=== PATIENT | female | born 1990 | race Caucasian/White ===

== ENCOUNTER 2019-12-06 00:42 | Day surgery (SDC) | payer OTHER ==
[2019-12-06 01:03] VITALS: BP 130/75; TEMP 98.8; BMI 31.5
[2019-12-06] MEDS ORDERED: hydrALAZINE 20 MG/ML VIAL SLOW IVP PRN (01:19)
--- NOTE | 2019-12-06 01:21 | PDOC.LDHP ---
Labor and Delivery H&P HPI: Pt of Dr Newman 29 yo G1 with irregular CTX. States was 3 cm on Sunday in office. No VB, no LOF , good FM. Review of Systems: Negative as per HPI after complete review Current gestational age (weeks): 38 (4 days) Due date: 12/16/19 Dating criteria: last menstrual period Grav: 1 Current complications: none Past Medical History: Anxiety Past HX Clavicular FX Current medications: pre-carlos vitamins, other (Zoloft) Allergies/Adverse Reactions: Allergies Allergy/AdvReac Type Severity Reaction Status Date / Time No Known Allergies Allergy Unverified 12/06/19 00:55 Social history: none - Physical Exam Vital signs reviewed and normal: yes (134/71 afebrile) General: NAD Heart: RRR Lungs: CTAB Abdomen: gravid Extremeties: no edema FHT: category 1 [place] contractions every: every 2-6 - Vaginal Exam cm dilated: 3 Effacement: 90% Station: -1 - Assessment Latent labor at early term, 3cm. Patient lives about 1 hr away - Plan Plan: observation in L&D (Obs here until 0600 due to her distance from hospital. Recheck at 0600. Pain meds prn. If no change may be DC home then.)
[2019-12-06] MEDS ORDERED: Morphine 2 MG/ML SYRINGE IM PRN (01:23)
== END 2019-12-06 06:30 | disposition home or self-care (01) ==
LOC: L&D/OP 00:42
PROVIDERS: ATTEND Obstetrics & Gynecology
DX: O47.1 False labor at or after 37 completed weeks of gestation (principal); O99.343 Other mental disorders complicating pregnancy, third trimester; F41.9 Anxiety disorder, unspecified; Z3A.38 38 weeks gestation of pregnancy; Z79.899 Other long term (current) drug therapy

== ENCOUNTER 2019-12-07 08:02 | Inpatient (IN) | payer OTHER ==
[2019-12-07 08:22] VITALS: BMI 31.5
[2019-12-07] MEDS ORDERED: Lidocaine 1% (PF) 30 ML VIAL SC PRN (08:41)
[2019-12-07] MEDS ORDERED: Promethazine HCl 25 MG/ML VIAL IM PRN ×2 (08:41→11:46)
[2019-12-07] MEDS ORDERED: Acetaminophen 500 MG TAB PO PRN (08:41)
[2019-12-07] MEDS ORDERED: hydrALAZINE 20 MG/ML VIAL SLOW IVP PRN ×2 (08:41→17:49)
[2019-12-07] MEDS ORDERED: Butorphanol Tartrate 1 MG/ML VIAL SLOW IVP PRN (08:41)
[2019-12-07] MEDS ORDERED: NS / Oxytocin 40 units/1000ml 1,000 ML IV PRN (08:41)
[2019-12-07] MEDS ORDERED: Ondansetron PF 4 MG/2 ML Vial IVP PRN ×3 (08:41→17:49)
[2019-12-07] MEDS ORDERED: NS w/ Oxytocin 10 units 500 ML IV SCH (08:45)
--- NOTE | 2019-12-07 08:50 | PDOC.FPROB ---
FMR OB H&P: Medications - Current Home Medications: Medication Instructions Recorded Confirmed Type Acetaminophen [Tylenol] 650 mg PO Q6HR PRN 12/06/19 12/06/19 History 21/Iron Fu/Folic Acid 1 tablet PO DAILY 12/06/19 12/06/19 History [ Complete Caplet] Sertraline HCl 50 mg PO DAILY 12/06/19 12/06/19 History Allergies/Adverse Reactions: Allergies Allergy/AdvReac Type Severity Reaction Status Date / Time No Known Allergies Allergy Unverified 12/06/19 00:55 FMR OB H&P: Vital Signs - Maternal Vital signs: Vital Signs - First Documented Temp Pulse Resp BP Pulse Ox 98.3 F 93 20 135/85 99 12/07/19 08:14 12/07/19 08:14 12/07/19 08:14 12/07/19 08:14 12/07/19 08:14 FMR OB H&P: A/P - Problem List (1) Current Visit: Yes Status: Acute Discussion: Date/Time: 12/07/19 0849 PCP: Paty HPI: Patient comes in for gross rupture of membranes. She states at about 0620 this AM she noticed a large gush of fluid in her bed, after that she got ready and headed to the hospital. She states she is feeling contractions about every 5 minutes but that she is able to talk and walk through them. She affirms movement, bleeding. Denies PHILIPPE, visual changes, SOB, or swelling. History: OB hx: G1 PMH: migraines, anxiety PSH: [place] 2010 Meds: PNV, sertraline All: NKDA Soc Hx: denies smoking, alcohol, drugs Fam Hx: denies downs, congenital defects GBS: neg Blood type: O+ Ab screen: neg HIV: neg RPR: neg Hep B: neg Rubella: immune NIPT: neg CFCS: [place] fragile x 1 hr GTT: 129 GC/CT: neg REVIEW OF SYSTEMS: Gen: no fever, chills, or sweats Neuro: no numbness/tingling, no weakness, denies headache ENT: denies congestion Eyes: no visual changes Resp: denies cough, no production, no SOB, no wheeze Card: denies chest pain, no palpitations GI: denies nausea, vomiting, diarrhea : no dysuria, no hematuria Skin: no rash, no erythema Psych: denies hx anxiety/depression Vitals: T: 98.5 R: 18 BP: 123/84 P:67 at: 98% on RA PHYSICAL EXAMINATION: General: NAD, alert and oriented x3 HEENT: EOMI, normal sclera Neck: Supple. Full ROM. Heart/Cardiovascular System: RRR, Cap refill < 3 seconds, no rub, no murmur Lungs/Respiratory System: clear to auscultation bilaterally. No increased work of breathing. Room air. Abdomen/Gastro-Intestinal System: no abdominal tenderness, normal bowel sounds, Gravid Extremities: Warm extremities. No cyanosis or edema. Neuro: No gross deficits appreciated Psychiatry: Awake, Alert and cooperative with exam Skin: no lesions, no rashes Musculoskeletal: Full ROM A/P: This is a 29 yo at 38.5 wks here for SROM FHT: 150 baseline, mod variability, no decels, accels present [place]: contractions q5 min # SROM - SVE: /-1 - Gross ROM - Will augment labor with Pitocin - Expectant mgmt
[2019-12-07] MEDS: Lactated Ringer's 1,000 ML IV SCH ×2 (08:59→11:30)
[2019-12-07] MEDS ORDERED: Bupivacaine 0.5% 10 ML VIAL ONE ×2 (09:13→11:17)
[2019-12-07] MEDS ORDERED: EPHEDRINE 25 MG/5 ML SYRINGE ONE (09:23)
[2019-12-07 09:41] LABS: Mean Corpuscular Hemoglobin 30.2 pg (27.0-31.0); Mean Corpuscular Volume 88.8 fL (78.0-98.0); Mean Platelet Volume 7.7 fL (7.4-10.4); Platelet Count 297 thou/uL (130-400); RBC Distribution Width 12.3 % (11.5-14.5); Red Blood Cell (RBC) Count 3.98 mill/uL (4.20-5.40)
[2019-12-07 10:23] LABS: Syphilis Antibody Nonreactive (Nonreactive); Syphilis Antibody Index 0.03 S/CO (<1.00 Non-Reactive)
[2019-12-07 10:24] LABS: HBSAg Index 0.19 S/CO (0-0.99); Hep B Surf Ag Non-Reactive S/CO (NonReactive)
[2019-12-07] MEDS ORDERED: Fentanyl 4 mcg/Bup 0.1% Cadd 100 ML ONE (11:04)
[2019-12-07] MEDS ORDERED: Fentanyl 100 MCG/2 ML VIAL ONE (11:17)
[2019-12-07] MEDS ORDERED: Fentanyl 100 MCG/2 ML VIAL I-THECAL ONE (11:45)
[2019-12-07] MEDS ORDERED: Naloxone HCl 0.4 mg/ml Vial IVP PRN ×2 (11:46)
[2019-12-07] MEDS ORDERED: Lactated Ringer's 500 ML IV PRN (11:46)
[2019-12-07] MEDS ORDERED: diphenhydrAMINE 50 MG/ML VIAL IVP PRN (11:46)
[2019-12-07] MEDS ORDERED: Acetaminophen 325 MG TAB PO PRN (11:46)
[2019-12-07] MEDS ORDERED: Bupivacaine 0.25% 10 ML VIAL EPIDURAL ONE (11:46)
[2019-12-07] MEDS ORDERED: EPHEDRINE 25 MG/5 ML SYRINGE SLOW IVP PRN (11:46)
[2019-12-07] MEDS ORDERED: Communication Order-Pharmacy FS SCH (12:00)
[2019-12-07] MEDS ORDERED: Fentanyl 4 mcg/Bupivacaine 0.1% Cassette 100 ML EPIDURAL SCH (12:00)
[2019-12-07] MEDS: NS / Oxytocin 40 units/1000ml 1,000 ML IV SCH ×2 (17:25→18:34)
[2019-12-07] MEDS ORDERED: diphenhydrAMINE 25 MG CAP PO PRN (17:49)
[2019-12-07] MEDS ORDERED: Lanolin Ointment 7 GM TUBE TOP PRN (17:49)
[2019-12-07] MEDS ORDERED: Zolpidem Tartrate 5 MG TAB PO PRN (17:49)
[2019-12-07] MEDS ORDERED: Bisacodyl 10 MG SUPP PR PRN (17:49)
[2019-12-07] MEDS ORDERED: Misoprostol 200 MCG TAB VAG PRN (17:49)
[2019-12-07] MEDS ORDERED: Benzocaine-Menthol 82.5 ML CAN TOP PRN (17:49)
[2019-12-07] MEDS ORDERED: Acetaminophen/Codeine 30-300mg Tablet PO PRN ×2 (17:49)
[2019-12-07] MEDS ORDERED: Milk Of Magnesia 30 ML UDCUP PO PRN (17:49)
[2019-12-07] MEDS ORDERED: Calcium Carbonate 500 MG ChewTAB PO SCH (19:15)
[2019-12-07] MEDS: Docusate Calcium (SURFAK) 240 MG CAP PO SCH (21:10)
[2019-12-07] MEDS: Ibuprofen 800 MG TAB PO SCH (21:10)
[2019-12-08] MEDS: Ibuprofen 800 MG TAB PO SCH ×3 (05:35→22:20)
[2019-12-08 06:09] LABS: Hemoglobin 9.9 g/dL (12.0-16.0); Mean Corpuscular HGB CONC 33.9 g/dL (32.0-36.0); Mean Corpuscular Hemoglobin 30.2 pg (27.0-31.0); Mean Platelet Volume 7.5 fL (7.4-10.4); Platelet Count 226 thou/uL (130-400); RBC Distribution Width 12.3 % (11.5-14.5); Red Blood Cell (RBC) Count 3.27 mill/uL (4.20-5.40); White Blood Cell (WBC) Count 13.7 thou/uL (4.8-10.8)
[2019-12-08] MEDS: Ferrous Sulfate 325 MG TAB PO SCH ×2 (08:56→16:23)
[2019-12-08] MEDS ORDERED: Adacel (T-DAP) 0.5 ML SYRINGE IM ONE (09:00)
[2019-12-08] MEDS: Docusate Calcium (SURFAK) 240 MG CAP PO SCH ×2 (09:19→22:20)
[2019-12-08] MEDS: Prenatal Vitamin 1 TAB PO SCH (09:19)
[2019-12-09] MEDS: Ibuprofen 800 MG TAB PO SCH (06:39)
[2019-12-09 07:52] VITALS: BP 120/65; TEMP 98
[2019-12-09] MEDS: Prenatal Vitamin 1 TAB PO SCH (09:24)
[2019-12-09] MEDS: Docusate Calcium (SURFAK) 240 MG CAP PO SCH (09:24)
[2019-12-09] MEDS: Ferrous Sulfate 325 MG TAB PO SCH (09:24)
== END 2019-12-09 12:25 | disposition home or self-care (01) | DRG 806 ==
LOC: SJX 08:02 → L&D 08:41 → 3SW 20:44
PROVIDERS: ADMIT Obstetrics & Gynecology; ATTEND Obstetrics & Gynecology
PROC: 10E0XZZ Delivery of Products of Conception, External Approach (ICD-10-PCS; principal; 2019-12-07)
PROC: 0KQM0ZZ Repair Perineum Muscle, Open Approach (ICD-10-PCS; 2019-12-07)
PROC: 3E0234Z Introduction of Serum, Toxoid and Vaccine into Muscle, Percutaneous Approach (ICD-10-PCS; 2019-12-07)
DX: O99.344 Other mental disorders complicating childbirth (principal); O99.354 Diseases of the nervous system complicating childbirth; Z37.0 Single live birth; O70.1 Second degree perineal laceration during delivery; F41.9 Anxiety disorder, unspecified; G43.909 Migraine, unspecified, not intractable, without status migrainosus; Z3A.38 38 weeks gestation of pregnancy; Z23 Encounter for immunization
CPT/HCPCS: 36415; 51702; 85027; 86780; 86850; 86900; 86901; 87340; 99285; J2405; J2590; J3010; J3490